=== PATIENT | male | born 1935 | race Caucasian/White ===

== ENCOUNTER 2018-06-06 07:09 | Day surgery (SDC) | payer MEDICARE ==
[~2018-06-06] VITALS: Ht 180.3 cm; Wt 72.5 kg
[2018-06-06 07:42] VITALS: BP 161/78
[2018-06-06] MEDS ORDERED: SODIUM CHLORIDE 0.9% 1,000 ML IV SCH (07:47)
[2018-06-06] MEDS ORDERED: LIDOCAINE-MPF 1%, 5ML ONE (09:13)
[2018-06-06] MEDS ORDERED: FLUMAZENIL 0.1 MG/1 ML, 5ML ONE (09:23)
[2018-06-06] MEDS ORDERED: MIDAZOLAM 1 MG/ML, 5ML ONE (09:23)
[2018-06-06] MEDS ORDERED: FENTANYL PF 100 MCG/2ML ONE ×2 (09:23)
[2018-06-06] MEDS ORDERED: NALOXONE 1 MG/ML, 2ML ONE (09:24)
[2018-06-06] MEDS ORDERED: CEFAZOLIN PMX 1GM/50ML 50 ML IVPB ONE (10:00)
== END 2018-06-06 12:00 | disposition home or self-care (01) ==
LOC: OUT 07:09 → EDSTATUS 09:00 → OUT 12:00
PROVIDERS: ATTEND Nurse Practitioner Pediatrics
DX: Z45.2 Encounter for adjustment and management of vascular access device (principal); C61 Malignant neoplasm of prostate; Z98.890 Other specified postprocedural states; Z72.89 Other problems related to lifestyle
CPT/HCPCS: 36581; 75984; 99156; 99157; C1750; C1769; J1642; J2250; J3010; J2310

== ENCOUNTER 2018-07-16 07:19 | Day surgery (SDC) | payer MEDICARE ==
[2018-07-16] MEDS ORDERED: LIDOCAINE-MPF 1%, 5ML ONE (07:46)
== END 2018-07-16 17:00 | disposition home or self-care (01) ==
LOC: RAD 07:19
PROVIDERS: ATTEND Nurse Practitioner Pediatrics
DX: Z45.2 Encounter for adjustment and management of vascular access device (principal); C61 Malignant neoplasm of prostate
CPT/HCPCS: 36589; 77001